=== PATIENT | female | born 1970 | race Caucasian/White ===

== ENCOUNTER → 2016-09-27 | Outpatient (CLI) | payer OTHER ==
[~2016-09-27] MED LIST: AMOXICILLIN 8751 TAB PO; CRESTOR 10MG10 MG PO; NORCO 325 MG-7.1 TAB PO; PROZAC 20MG20 MG PO; PROZAC10 MG PO; SYNTHROID 0.0.025 MG PO
== END ==
LOC: MC.RAD 10:05
DX: Z12.31 Encounter for screening mammogram for malignant neoplasm of breast (principal)

== ENCOUNTER 2016-12-08 18:32 | Observation (INO) | payer OTHER ==
[~2016-12-08] VITALS: Ht 157.5 cm; Wt 89.3 kg
[~2016-12-08 18:32] MED LIST changes: -AMOXICILLIN 8751 TAB PO; -CRESTOR 10MG10 MG PO; -NORCO 325 MG-7.1 TAB PO; -PROZAC 20MG20 MG PO; -SYNTHROID 0.0.025 MG PO
[2016-12-08] MEDS ORDERED: SYNTHROID 0.0.025 MG PO (18:39)
[2016-12-08] MEDS ORDERED: CRESTOR 10MG10 MG PO (18:39)
[2016-12-08] MEDS ORDERED: PROZAC 20MG20 MG PO (18:40)
[2016-12-08 19:27] LABS: BASO # 0.1 (0.0-0.2); BASO % 0.4 % (0.0-2.0); EOS % 0.2 % (0-4.0); GRAN # 15.6 (1.4-6.5); GRAN % 85.6 % (42.2-75.2); HEMATOCRIT 42.6 % (37.0-47.0); LYMPH % 5.6 % (20.0-51.0); MEAN CELL VOLUME 86 fl (80.0-100.0); MEAN CORPUSCULAR HEMOGLOBIN 28 pg (27.0-31.0); MEAN CORPUSCULAR HGB CONC 33 g/dl (33.0-37.0); MEAN PLATELET VOLUME 10.3 fl (7.4-10.4); MONO # 1.4 (0.1-0.6); MONO % 7.8 % (1.7-9.3); PLATELET COUNT 259 K/mm3 (130-400); RED BLOOD COUNT 4.93 M/mm3 (4.10-5.30); WHITE BLOOD COUNT 18.2 K/mm3 (4.8-10.8)
[2016-12-08 19:38] LABS: ADJUSTED CALCIUM 8.9 mg/dL (8.4-10.2); ALBUMIN 4.4 gm/dL (3.5-5.0); BILIRUBIN,TOTAL 2.8 mg/dL (0.0-1.0); C-REACTIVE PROTEIN 7.5 mg/dL (0.0-0.9); CALCIUM 9.2 mg/dL (8.4-10.2); CREATININE, serum 0.9 mg/dL (0.52-1.25); POTASSIUM 3.7 mmol/L (3.4-5.0); TOTAL PROTEIN 8.2 gm/dL (6.4-8.2)
[2016-12-08 19:58] LABS: PH 5 (5-8); SQUAMOUS EPITHELIAL 0-2 /hpf; URINE APPEARANCE Hazy; URINE BACTERIA Rare /hpf; URINE BILIRUBIN Negative (NEGATIVE); URINE BLOOD 2+ (NEGATIVE); URINE COLOR Yellow; URINE GLUCOSE Negative (NEGATIVE); URINE KETONE 2+ (NEGATIVE); URINE UROBILINOGEN Negative (NEGATIVE); URINE WBC 0-2 /hpf
[2016-12-08 21:17] VITALS: BP 121/72; PULSE 82; TEMP 99.7
[2016-12-09] VITALS (13 sets, daily range): BP systolic 91–108; BP diastolic 41–58; PULSE 66–90; TEMP 97.8–99.6
[2016-12-10 02:18] VITALS: BP 97/52; PULSE 82; TEMP 98.1
[2016-12-10 06:05] VITALS: BP 86/38; PULSE 84; TEMP 97.5
[2016-12-10 07:00] VITALS: BP 90/48
[2016-12-10 07:02] LABS: BASO # 0.1 (0.0-0.2); BASO % 0.6 % (0.0-2.0); EOS # 0.1 (0.0-0.7); EOS % 1.1 % (0-4.0); GRAN # 8.6 (1.4-6.5); GRAN % 77.7 % (42.2-75.2); LYMPH # 1.4 (1.2-3.4); LYMPH % 12.2 % (20.0-51.0); MEAN CELL VOLUME 89 fl (80.0-100.0); MEAN CORPUSCULAR HGB CONC 32 g/dl (33.0-37.0); MEAN PLATELET VOLUME 10.7 fl (7.4-10.4); MONO # 0.9 (0.1-0.6); MONO % 7.9 % (1.7-9.3); PLATELET COUNT 186 K/mm3 (130-400); RED BLOOD COUNT 3.74 M/mm3 (4.10-5.30); REDCELL DISTRIBUTION WIDTH-CV 13.3 % (11.5-14.5); WHITE BLOOD COUNT 11.1 K/mm3 (4.8-10.8)
[2016-12-10 07:07] LABS: HEMATOCRIT 33.3 % (37.0-47.0); HEMOGLOBIN 10.7 g/dl (12.5-16.0); MEAN CORPUSCULAR HEMOGLOBIN 29 pg (27.0-31.0)
[2016-12-10 09:35] VITALS: BP 86/63; PULSE 80; TEMP 97.9
[2016-12-10 13:35] VITALS: BP 92/72; PULSE 84; TEMP 97.8
[2016-12-10] MEDS ORDERED: NORCO 325 MG-7.1 TAB PO (13:46)
[2016-12-10] MEDS ORDERED: AMOXICILLIN 8751 TAB PO (13:49)
== END 2016-12-10 14:49 | disposition home or self-care (01) ==
LOC: COL.ER 18:32 → SURG 20:36
PROVIDERS: Nurse Practitioner; Surgery
DX: K35.2 Acute appendicitis with generalized peritonitis (principal)
CPT/HCPCS: A9284; G0378; J1170; J1885; J2405; J2543; J2704; J2765; J3010; J7030; J7042; J7050; Q9967

== ENCOUNTER → 2017-11-08 | Outpatient (CLI) | payer BC ==
[~2017-11-08] MED LIST changes: +AMOXICILLIN 8751 TAB PO; +CRESTOR 10MG10 MG PO; +NORCO 325 MG-7.1 TAB PO; +PROZAC 20MG20 MG PO; +SYNTHROID 0.0.025 MG PO
== END ==
LOC: MC.RAD 06:57
DX: Z12.31 Encounter for screening mammogram for malignant neoplasm of breast (principal)

== ENCOUNTER → 2018-12-05 | Outpatient (CLI) | payer BC | LOC: MC.RAD 14:34 | DX: Z12.31 Encounter for screening mammogram for malignant neoplasm of breast (principal); R92.0 Mammographic microcalcification found on diagnostic imaging of breast ==

== ENCOUNTER → 2018-12-11 | Outpatient (CLI) | payer BC | LOC: MC.RAD 10:19 | DX: R92.0 Mammographic microcalcification found on diagnostic imaging of breast (principal) ==

== ENCOUNTER 2019-01-25 23:17 | Emergency (ER) | payer BC ==
[~2019-01-25] VITALS: Ht 157.5 cm; Wt 84.1 kg
[2019-01-25 23:26] VITALS: TEMP 97.8
[2019-01-25 23:41] LABS: BASO # 0.1 (0.0-0.2); BASO % 1.1 % (0.0-2.0); EOS # 0.2 (0.0-0.7); EOS % 2.3 % (0-4.0); GRAN # 4.9 (1.4-6.5); GRAN % 59.9 % (42.2-75.2); HEMOGLOBIN 13.3 g/dl (12.5-16.0); LYMPH # 2.2 (1.2-3.4); LYMPH % 26.6 % (20.0-51.0); MEAN CELL VOLUME 87 fl (80.0-100.0); MEAN CORPUSCULAR HEMOGLOBIN 28 pg (27.0-31.0); MEAN CORPUSCULAR HGB CONC 32 g/dl (33.0-37.0); MONO # 0.8 (0.1-0.6); MONO % 9.6 % (1.7-9.3); PLATELET COUNT 287 K/mm3 (130-400); RED BLOOD COUNT 4.69 M/mm3 (4.10-5.30); REDCELL DISTRIBUTION WIDTH-CV 12.8 % (11.5-14.5)
[2019-01-25 23:51] LABS: ALANINE AMINOTRANSFERASE 16 U/L (9-52); ALBUMIN 4.2 gm/dL (3.5-5.0); ALKALINE PHOSPHATASE 84 U/L (50-136); ANION GAP 11 mmol/L (7-16); AST,SGOT 22 U/L (15-37); BILIRUBIN,TOTAL 0.6 mg/dL (0.0-1.0); BLOOD UREA NITROGEN 20 mg/dL (7-17); CALCIUM 9.1 mg/dL (8.4-10.2); CARBON DIOXIDE 27 mmol/L (22-30); CHLORIDE 102 mmol/L (98-107); CREATININE, serum 0.88 (0.52-1.25); GLUCOSE 199 mg/dL (74-106); LIPASE 73 U/L (23-300); SODIUM 141 mmol/L (137-145); TOTAL PROTEIN 7.6 gm/dL (6.4-8.2)
[2019-01-26 00:04] LABS: TROPONIN-I < 0.012 ng/mL (0.000-0.035)
[2019-01-26 00:06] LABS: INR 0.9 (0.8-3.0); PROTHROMBIN TIME 9.9 SECONDS (9.7-12.8)
[2019-01-26 00:15] LABS: D-DIMER < 200.00 ng/mLDDu (200-230)
[2019-01-26 03:55] VITALS: BP 110/45; PULSE 74
== END 2019-01-26 03:55 | disposition home or self-care (01) ==
LOC: COL.ER 23:17
PROVIDERS: Emergency Medicine
DX: R07.89 Other chest pain (principal); I10 Essential (primary) hypertension; E11.9 Type 2 diabetes mellitus without complications; Z90.49 Acquired absence of other specified parts of digestive tract; Z90.710 Acquired absence of both cervix and uterus; Z98.84 Bariatric surgery status
CPT/HCPCS: J2270; J7030

== ENCOUNTER → 2019-01-28 | Outpatient (CLI) | payer BC | LOC: COL.RAD 11:05 | DX: R10.11 Right upper quadrant pain (principal) ==

== ENCOUNTER → 2019-06-22 | Outpatient (CLI) | payer BC | LOC: MC.RAD 13:00 | DX: N64.89 Other specified disorders of breast (principal); R92.0 Mammographic microcalcification found on diagnostic imaging of breast ==

== ENCOUNTER 2019-08-31 06:26 | Day surgery (SDC) | payer BC ==
[~2019-08-31] VITALS: Ht 157.5 cm; Wt 86.8 kg
[2019-08-31] MEDS ORDERED: PRILOSEC 20MG20 MG PO (06:48)
[2019-08-31] MEDS ORDERED: VENTOLIN0.09 MG IH (06:49)
[2019-08-31 07:15] VITALS: BP 132/70; PULSE 78; TEMP 97.8
[2019-08-31 08:45] VITALS: BP 112/69; PULSE 70; TEMP 97.5
--- NOTE | 2019-08-31 08:45 | NUR ---
Patient arrives back to [facility] alert. Patient ambulates from cart to chair with stand by assist and without any complications. Patient montior applied, vitals stable. Patient's son at bedside.
[2019-08-31 08:54] VITALS: TEMP 97.5
--- NOTE | 2019-08-31 08:55 | NUR ---
Patient given muffin and coffee at this time.
[2019-08-31 09:00] VITALS: BP 129/43; PULSE 63
--- NOTE | 2019-08-31 09:10 | NUR ---
Dismissal instructions gone over with patient and patient's spouse. Both verbalize understanding and all questions answered.
--- NOTE | 2019-08-31 09:20 | NUR ---
Patient discharged to private vehicle via wheelchair without any complications. Patient and patient's family leave thanking staff for services.
== END 2019-08-31 09:20 | disposition home or self-care (01) ==
LOC: SDCO 06:26
DX: Z12.11 Encounter for screening for malignant neoplasm of colon (principal); K64.4 Residual hemorrhoidal skin tags; K21.9 Gastro-esophageal reflux disease without esophagitis; E78.5 Hyperlipidemia, unspecified; J30.2 Other seasonal allergic rhinitis; F32.9 Major depressive disorder, single episode, unspecified; F41.9 Anxiety disorder, unspecified; E03.9 Hypothyroidism, unspecified; E11.9 Type 2 diabetes mellitus without complications; Z90.710 Acquired absence of both cervix and uterus
CPT/HCPCS: J2704; J7030

== ENCOUNTER → 2019-12-28 | Outpatient (CLI) | payer BC ==
[~2019-12-28] MED LIST changes: +PRILOSEC 20MG20 MG PO; +VENTOLIN0.09 MG IH
== END ==
LOC: MC.RAD 07:09
DX: N64.89 Other specified disorders of breast (principal)
CPT/HCPCS: G0279

== ENCOUNTER → 2019-12-30 | Outpatient (CLI) | payer BC | LOC: MC.RAD 08:17 | DX: N63.20 Unspecified lump in the left breast, unspecified quadrant (principal) ==

== ENCOUNTER 2020-01-13 06:45 | Day surgery (SDC) | payer BC ==
[~2020-01-13] VITALS: Ht 157.5 cm; Wt 89.7 kg
[2020-01-13] VITALS (9 sets, daily range): BP systolic 107–129; BP diastolic 69–82; PULSE 73–93; TEMP 98.5–98.7
[2020-01-13] MEDS ORDERED: CLARITIN 1010 MG/TAB PO (07:52)
--- NOTE | 2020-01-13 10:20 | NUR ---
The patient patient was taken back to radiology via wheelchair to have her remaining radiology procedures completed prior to surgery. Will continue to monitor the patient she returns to the unit.
--- NOTE | 2020-01-13 11:42 | NUR ---
The patient arrived back from radiology and was taken over to the recovery room via cart at this time to have her pre-op nerve block completed by anesthesia. She will then be taken back to the operating room. Will continue to monitor the patient when she returns to the unit post operatively. The patient's chart was sent with her to surgery.
[2020-01-13] MEDS ORDERED: NORCO 325 MG-51 TAB PO (13:19)
--- NOTE | 2020-01-13 13:55 | NUR ---
The patient arrived back to [facility] from the recovery room at this time. The patient appears drowsy but arouses easily to her name. Post operative vital signs were started at this time. The patient's dressing to her left axilla appears clean, dry and intact and the site is soft to touch without any increased pain. The patient has oxygen in place at 2L per nasal cannula. The patient denies wanting anything to eat or drink at this time. Call light is wtihin reach. The patient denies any further needs at this time. Will continue to monitor the patient.
--- NOTE | 2020-01-13 14:10 | NUR ---
The patient reports increased pain in her left axilla at this time. The patient agrees to try an oral medication for pain control. The patient agrees to try some saltine crackers and cranberry juice at this time. Will continue to monitor the patient.
--- NOTE | 2020-01-13 14:30 | NUR ---
The patient was given a PRN dose of [place] one tab for reports of increased pain in her left axilla. The area was soft and without increased pain to touch. The patient has ate to some crackers and requests to try some water at this time. Vital signs appear stable. Will continue to monitor the patient.
--- NOTE | 2020-01-13 14:40 | NUR ---
The patient appears to be tolerating the water well. Vital signs remain stable. Call light is within reach. Will continue to monitor the patient.
--- NOTE | 2020-01-13 15:10 | NUR ---
The patient states the aching pain is "better but still there". The patient was assisted to put in bra back in place to provide support to her left breast and the incision site. Will continue to monitor the patient.
--- NOTE | 2020-01-13 15:40 | NUR ---
The patietn is sitting up on the cart reading a book and appears to be resting comfortably. The patient continues to report "a lot of aching pain" in her left breast and axilla. The nurse discussed calling the doctor the check for further orders for pain control prior to discharge. An ice pack was provided for the area at this time.
--- NOTE | 2020-01-13 15:50 | NUR ---
Dr. Benites was attempted to be called at this time for further orders for pain control. He was unable to be reached and a message with a callback number was left at this time. Will continue to monitor the patient.
--- NOTE | 2020-01-13 16:19 | NUR ---
Dr. Benites was attempted to be called again at this time. He was reached and further orders were obtained at this time and entered in the computer. The patient ambulated to the bathroom with the stand by assistance of one nurse and appeared to tolerate the activity well. Will continue to monitor the patient.
--- NOTE | 2020-01-13 16:27 | NUR ---
The patient voided without difficulty and ambulated back to the cart in her room using a steady gait. The patient was given a PRN dose of Ibuprofen 600 mg as ordered at this time. The patient is going to get dressed and is to notify the staff if she needs assistance.
--- NOTE | 2020-01-13 16:38 | NUR ---
Discharge instructions were reviewed with the patient at this time. She verbalized understanding and has no questions for the nurse at this time. The patient's IV to her right hand was removed and a pressure dressing was applied to the site. The patient is dressed and ready to be escorted out.
--- NOTE | 2020-01-13 16:45 | NUR ---
The patient was escorted out via wheelchair to a private vehicle by VARGAS Coles. The patient's belongings and discharge paperwork were sent with her. The patient's family is present to drive her home.
== END 2020-01-13 16:45 | disposition home or self-care (01) ==
LOC: SDCO 06:45
DX: C50.412 Malignant neoplasm of upper-outer quadrant of left female breast (principal); E78.00 Pure hypercholesterolemia, unspecified; J45.909 Unspecified asthma, uncomplicated; K21.9 Gastro-esophageal reflux disease without esophagitis; E03.9 Hypothyroidism, unspecified; F41.9 Anxiety disorder, unspecified; F32.9 Major depressive disorder, single episode, unspecified; R01.1 Cardiac murmur, unspecified; Z80.0 Family history of malignant neoplasm of digestive organs; Z83.3 Family history of diabetes mellitus; Z79.899 Other long term (current) drug therapy
CPT/HCPCS: A9541; J0690; J1100; J2250; J2405; J2704; J3010; J7120

== ENCOUNTER 2020-01-19 08:23 | Day surgery (SDC) | payer BC ==
[2020-01-19] VITALS (7 sets, daily range): BP systolic 88–118; BP diastolic 45–69; PULSE 66–84; TEMP 98.1
[~2020-01-19] VITALS: Ht 157.5 cm; Wt 90.1 kg
[~2020-01-19 08:23] MED LIST changes: +CLARITIN 1010 MG/TAB PO; +NORCO 325 MG-51 TAB PO
--- NOTE | 2020-01-19 10:51 | NUR ---
Patient returns to room 5 per cart from surgery accompanied by Anna KAYE and Malvin RANDALL and arouses to verbal stimuli. IV fluids infusing and site is free of redness. Left breast dressing clean and dry. Temp 97.5 and room air sats 94%. Siderails up x2 and call light in reach.
[2020-01-19] MEDS ORDERED: NORCO 325 MG-51 TAB PO (10:52)
--- NOTE | 2020-01-19 11:06 | NUR ---
Patient is drowsy and room air sats 89-91% and placed on oxygen at 2L. Sats up to 97%.
--- NOTE | 2020-01-19 11:21 | NUR ---
Drowsy and rests with eyes closed when not disturbed.
--- NOTE | 2020-01-19 11:36 | NUR ---
Continues to rest without complaints.
--- NOTE | 2020-01-19 11:51 | NUR ---
Continues to rest without complaints of pain. Has been taking sips of water without nausea.
--- NOTE | 2020-01-19 12:21 | NUR ---
Patient is awake and oxygen removed. Continues to sip on water and denies pain or nausea.
--- NOTE | 2020-01-19 13:15 | NUR ---
Patient dresses self and IV was discontinued. Site is free of redness. Spouse was notified for ride home.
--- NOTE | 2020-01-19 13:15 | NUR ---
Dismissal instructions given and voices understanding of these. Provided script for [place]. Left breast dressing remains clean and dry.
--- NOTE | 2020-01-19 13:17 | NUR ---
Patient dismissed to home per private vehicle driven by spouse and taken to the front door per wheelchair by Sabrina KAYE with instructions in hand.
== END 2020-01-19 13:17 | disposition home or self-care (01) ==
LOC: SDCO 08:23
DX: C50.412 Malignant neoplasm of upper-outer quadrant of left female breast (principal); E78.00 Pure hypercholesterolemia, unspecified; J45.909 Unspecified asthma, uncomplicated; K21.9 Gastro-esophageal reflux disease without esophagitis; F32.9 Major depressive disorder, single episode, unspecified; F41.9 Anxiety disorder, unspecified; E03.9 Hypothyroidism, unspecified; Z83.3 Family history of diabetes mellitus; Z82.3 Family history of stroke; Z90.710 Acquired absence of both cervix and uterus
CPT/HCPCS: J2250; J2405; J2704; J3010; J7120

== ENCOUNTER → 2020-07-21 | Outpatient (CLI) | payer BC | LOC: MC.RAD 08:22 | DX: N63.20 Unspecified lump in the left breast, unspecified quadrant (principal); Z85.3 Personal history of malignant neoplasm of breast; Z98.890 Other specified postprocedural states; Z92.3 Personal history of irradiation ==

== ENCOUNTER → 2020-07-27 | Outpatient (CLI) | payer BC | LOC: MC.RAD 10:00 | DX: C50.412 Malignant neoplasm of upper-outer quadrant of left female breast (principal); L76.34 Postprocedural seroma of skin and subcutaneous tissue following other procedure; N64.1 Fat necrosis of breast ==

== ENCOUNTER → 2020-12-19 | Outpatient (CLI) | payer BC | LOC: MC.RAD 08:24 | DX: Z98.890 Other specified postprocedural states (principal); C50.412 Malignant neoplasm of upper-outer quadrant of left female breast; Z98.82 Breast implant status; Z92.3 Personal history of irradiation; Z85.3 Personal history of malignant neoplasm of breast ==

== ENCOUNTER → 2021-12-20 | Outpatient (CLI) | payer BC | LOC: MC.RAD 08:59 | DX: Z12.31 Encounter for screening mammogram for malignant neoplasm of breast (principal); Z85.3 Personal history of malignant neoplasm of breast ==

== ENCOUNTER → 2024-01-02 | Outpatient (CLI) | payer BC | LOC: MC.RAD 13:48 | DX: Z12.31 Encounter for screening mammogram for malignant neoplasm of breast (principal) ==